=== PATIENT | male | born 1960 | race Caucasian/White ===

== ENCOUNTER 2023-03-21 07:03 | Day surgery (SDC) | payer OTHER, SELFPAY ==
--- NOTE | 2023-03-19 12:18 | HO.ANESPROP2 ---
HPI - Anesthesia Eval Consult details Narrative: 62yo M for Colonoscopy PMFSH Past Medical History Medical History Asthma Diverticulosis DVT (deep venous thrombosis) HLD (hyperlipidemia) HTN (hypertension) Prostate cancer Surgical History Surgical History H/O cervical spine surgery H/O colectomy H/O prostatectomy H/O shoulder surgery H/O umbilical hernia repair History of carpal tunnel release History of surgery on arm Hx of colonoscopy Social History Social History Patient Tobacco Use Status: Never used Tobacco Use of substances other than those prescribed or required for medical reasons: No Are you DNR?: No Advance Directives: No Advance Directives Information Provided: Yes Meds Allergies Allergy/AdvReac Type Severity Reaction Status Date / Time bee venom protein (honey bee) Allergy Severe Anaphylaxis Verified 03/21/23 07:17 hydrochlorothiazide Allergy Severe Swelling Verified 03/21/23 07:17 Home Medications Medication Instructions Recorded Confirmed Last Taken Type albuterol sulfate 90 mcg/actuation 2 puff inhalation Q4H PRN 03/19/23 03/21/23 Unknown History aerosol inhaler Shortness Of Breath Or Wheezing amlodipine 10 mg tablet 10 mg PO DAILY 03/19/23 03/21/23 03/21/23 History fluticasone furoate 200 1 ea inhalation DAILY 03/19/23 03/21/23 Unknown History mcg-vilanterol 25 mcg/dose inhalation powder (Breo Ellipta) valsartan 320 mg tablet 320 mg PO DAILY 03/19/23 03/21/23 03/21/23 History Exam Exam Date and Time: March 19, 2023 121 Assessment and Plan Assessment Anesthesia Assessment: Chart Reviewed
[2023-03-21 07:21] VITALS: BMI 30.1
--- NOTE | 2023-03-21 07:21 | P.CONAN_ITS ---
[facility] Past Medical History Medical History Asthma Diverticulosis DVT (deep venous thrombosis) HLD (hyperlipidemia) HTN (hypertension) Prostate cancer Functional capacity: independent ambulation Family History Family history of problems with anesthesia: No Surgical History Surgical History H/O cervical spine surgery H/O colectomy H/O prostatectomy H/O shoulder surgery H/O umbilical hernia repair History of carpal tunnel release History of surgery on arm Hx of colonoscopy History of Problems with Anesthesia: Yes Social History Social History Advance Directives: No Advance Directives Information Provided: Yes Meds Allergies Allergy/AdvReac Type Severity Reaction Status Date / Time bee venom protein (honey bee) Allergy Severe Anaphylaxis Verified 03/21/23 07:17 hydrochlorothiazide Allergy Severe Swelling Verified 03/21/23 07:17 Active Medications: Current Medications Albuterol Sulfate (Albuterol Sulfate (0.083%) 2.5 Mg/3 Ml Vial.Neb) 2.5 mg INHALE ONCE PRN PRN Reason: Shortness of Breath/Wheezing Lactated Ringer's (Lr) 1,000 mls @ 100 mls/hr IVCONT .Q10H PENDING SALE TO [facility] Home Medications Medication Instructions Recorded Confirmed Last Taken Type albuterol sulfate 90 mcg/actuation 2 puff inhalation Q4H PRN 03/19/23 03/21/23 Unknown History aerosol inhaler Shortness Of Breath Or Wheezing amlodipine 10 mg tablet 10 mg PO DAILY 03/19/23 03/21/23 03/21/23 History fluticasone furoate 200 1 ea inhalation DAILY 03/19/23 03/21/23 Unknown History mcg-vilanterol 25 mcg/dose inhalation powder (Breo Ellipta) valsartan 320 mg tablet 320 mg PO DAILY 03/19/23 03/21/23 03/21/23 History Exam Exam Date and Time: March 21, 2023720 Airway Mallampati Class: II TM Dist: >3cm Neck ROM: Full Heart: RRR Lungs: CTA Assessment and Plan Assessment Anesthesia Assessment: Anesthesia Plan Discussed Final Anesthetic Review Family History of Problems with Anesthesia: No History of Problems with Anesthesia: Yes NPO: Yes ASA Class: II Final Preanesthetic Review: Meds/Allgs Chart Reviewed, Consent Obtained/Reviewed and Anes Risks/Benef Reviewed Patient Risk: Low Procedure Risk: Low Anesthetic Plan Anesthetic Plan: MAC: Disposition: Standard PACU
[2023-03-21 07:28] VITALS: BP 117/80; PULSE 93; RESP 16; TEMP 36.9; O2SAT 96
[2023-03-21] MEDS: Lactated Ringers 1,000 ML 100 ML IVCONT (07:41)
--- NOTE | 2023-03-21 08:32 | P.HPSUR_ITS ---
Pre-Procedural Eval Section A Date of Service: 03/21/23 Section B Chief Complaint: screening Details of Present Illness: see H&P no changes Relevant Family History (Specify if Yes): No Relevant Social History: None Present Medications: see Short Stay Collaborative assessment Medical History: No relevant PMH History of Previous Operations: No relevant previous surgery Allergies: Allergies Allergy/AdvReac Type Severity Reaction Status Date / Time bee venom protein (honey bee) Allergy Severe Anaphylaxis Verified 03/21/23 07:17 hydrochlorothiazide Allergy Severe Swelling Verified 03/21/23 07:17 Review of Systems Sugical H&P ROS: Negative: Constitution, Cardiovascular, Respiratory, Neurological, Psychiatric, Hem-Onc, Allergic/Immunologic, Gastrointestinal, Genitourinary, Musculoskeletal, Integumentary, Endocrine and Eyes/Ears/No se/Throat Exam Surgical H&P Exam: Normal: HEENT, Normal: Heart, Normal: Lungs, Normal: Extremities, Normal: Abdomen, Normal: Skin and Normal: Neurological Plan Diagnosis/Plan: Unchanged I have reviewed the history and physical and performed a pertinent physical examination on my patient. No changes have occurred unless specified. Time Spent With Patient Time: Total time managing care of this patient today ____ minutes.
[2023-03-21 09:14] VITALS: BP 91/44; PULSE 74; RESP 16; TEMP 36.4; O2SAT 94
--- NOTE | 2023-03-21 09:20 | PM.OP ---
Brief Operative Note Date of Service: 03/21/23 Pre-op diagnosis: screening Post-op diagnosis: same Procedure: colonoscopy Surgeon: Bernardino Brock Anesthesia: MAC Was an Electronic Gluing Machine Operator used for this Procedure?: No Estimated blood loss (mL): 2 Pathology: other Condition: stable Disposition: PACU
[2023-03-21 09:29] VITALS: BP 100/58; PULSE 61; RESP 16; TEMP 37; O2SAT 97
[2023-03-21 09:41] VITALS: BP 115/69
--- NOTE | 2023-03-21 10:34 | OP_ITS ---
DATE OF SERVICE: 03/21/2023 SURGEON: Bernardino Brock MD INDICATIONS: Colon cancer screening and incomplete prep at the time of last colonoscopy. PREOPERATIVE DIAGNOSIS: POSTOPERATIVE DIAGNOSIS: PROCEDURE PERFORMED: Colonoscopy to the terminal ileum with snare polypectomy. ESTIMATED BLOOD LOSS: COMPLICATIONS: ANESTHESIA: Monitored anesthesia care. ASSISTANTS: SPECIMENS: DESCRIPTION OF PROCEDURE: A history and physical performed. The risks and benefits of the procedure were explained to the patient. Informed consent was obtained. The patient was placed in a left lateral decubitus position. A digital rectal exam was performed and was found to be normal. The Olympus pediatric video colonoscope was introduced into the rectum and advanced to the cecum. The cecum was identified by transillumination, palpation, and identification of ileocecal valve. Examination was performed, and the scope was removed. He tolerated the procedure well and was returned to recovery in stable condition. FINDINGS: The terminal ileum was normal. Visualized colonic mucosa was normal. The quality of the prep was good with some retained liquid stool that was washed and suctioned. Two polyps were identified and removed with a snare; both measured less than 10 mm. The polyps were located at 35 cm and 20 cm. No other polyps were identified. Retroflexed examination showed moderate-sized internal hemorrhoids. IMPRESSION: Colon polyps. RECOMMENDATIONS: 1. Follow up the biopsy results. 2. Repeat colonoscopy in 5 years because of family history of colon polyps. MD PETROS Sultana/SUSI / [id number]
--- NOTE | 2023-03-21 11:26 | HO.POSTANES ---
Post Anesthesia Evaluation Post Anesthesia Evaluation Date of Service: 03/21/23 Vital Signs: Vital Signs Temp Pulse Resp BP Pulse Ox O2 Del Method O2 Flow Rate 03/21/23 09:41 115/69 03/21/23 09:29 98.6 F 61 16 100/58 L 97 Room Air 03/21/23 09:14 97.5 F 74 16 91/44 L 94 Nasal Cannula 2 03/21/23 07:28 98.5 F 93 16 117/80 96 Room Air Anesthesia: Monitored Mental Status: Awake Pain Control: Satisfactory Nausea/Vomiting: None Hydration: Adequate Anesthesia-Related Issues: No Anes. Related Issues
== END 2023-03-21 10:06 | disposition home or self-care (01) ==
PROVIDERS: PCP Internal Medicine; Visit Provider Internal Medicine Gastroenterology
PROC: 0DJD8ZZ Inspection of Lower Intestinal Tract, Via Natural or Artificial Opening Endoscopic (ICD-10-PCS; CPT 45378; principal; 2023-03-21 08:20)
DX: Z12.11 Encounter for screening for malignant neoplasm of colon (principal); Z86.010 Personal history of colon polyps; Z83.71 Family history of colonic polyps; D12.5 Benign neoplasm of sigmoid colon; K63.5 Polyp of colon; K64.8 Other hemorrhoids; K57.30 Diverticulosis of large intestine without perforation or abscess without bleeding; I10 Essential (primary) hypertension; E78.5 Hyperlipidemia, unspecified; J45.909 Unspecified asthma, uncomplicated; C61 Malignant neoplasm of prostate; Z86.718 Personal history of other venous thrombosis and embolism; Z79.51 Long term (current) use of inhaled steroids; Z79.899 Other long term (current) drug therapy; Z88.8 Allergy status to other drugs, medicaments and biological substances
CPT/HCPCS: 45385; 88305